=== PATIENT | female | born 1955 | race Caucasian/White ===

== ENCOUNTER 2016-09-23 10:19 | Observation (INO) | payer BC ==
[2016-09-23] MEDS ORDERED: NS 1,000 ML IV ONE (10:38)
[2016-09-23] MEDS ORDERED: ONDANSETRON 4 MG/2 ML VIAL IVP ONE ×2 (10:38→14:00)
--- NOTE | 2016-09-23 10:55 | EDPHY ---
H & P Time Seen by Provider: 09/23/16 10:50 HPI/ROS: CHIEF COMPLAINT: Dizziness, nausea HISTORY OF PRESENT ILLNESS: The patient is a 61-year-old female, with history of vertigo, presenting with dizziness that started at 7:30 a.m. The patient rolled to her left side this morning and felt the room spinning. She became diaphoretic, nauseous, and had multiple episodes of emesis. She has experienced vertigo in the past, but states this is more severe than previous episodes. Patient continues to feel the room spinning with associated nausea. REVIEW OF SYSTEMS: A comprehensive 10 point review of systems is otherwise negative aside from elements mentioned in the history of present illness. Past Medical/Surgical History: Vertigo Social History: Friend at bedside. Smoking Status: Never smoked Physical Exam: General Appearance: Alert, pleasant, pale appearing Eyes: Pupils equal and round, no conjunctival pallor or injection, horizontal nystagmus ENT, Mouth: Mucous membranes moist Neck: Normal inspection Respiratory: Lungs are clear to auscultation Cardiovascular: Regular rate and rhythm Gastrointestinal: Abdomen is soft and non-tender Neurological: A&O, nonfocal, normal leg raises. Skin: Warm and dry, no rash Extremities: Nontender, no pedal edema Psychiatric: Mood and affect normal Constitutional: Initial Vital Signs Temperature (C) 36.4 C 09/23/16 10:23 Heart Rate 54 L 09/23/16 10:23 Respiratory Rate 26 H 09/23/16 10:23 Blood Pressure 154/84 H 09/23/16 10:23 O2 Sat (%) 100 09/23/16 10:23 O2 Delivery Mode Nasal Cannula O2 (L/minute) 2 Allergies/Adverse Reactions: No Known Allergies Allergy (Unverified 09/23/16 10:23) Home Medications: Medication Instructions Recorded Cholecalciferol Vit D3 [Vitamin D3 4,000 units PO DAILY 09/23/16 (*)] Fluticasone Nasal [Flonase Nasal 1 sprays NASAL HS 09/23/16 [place] (RX)] Herbals/Supplements -Info Only 1 ea PO DAILY 09/23/16 Naproxen Sodium [Aleve 220 MG (*)] 220 mg PO DAILY PRN 09/23/16 Vitamin B Complex [B Complex] 1 each PO DAILY 09/23/16 Medical Decision Making - Diagnostics EKG Interpretation: The 12 lead EKG was interpreted by myself. See hard copy and/or "tracemaster" electronic copy for interpretation. Sinus rhythm. Poor R wave progression, diffuse T wave changes. ED Course/Re-evaluation: The patient presents with episode of severe vertigo. Patient has bilateral nystagmus. IV established. Plan to treat symptoms with Zofran, Valium, and Meclizine. 12:20 p.m.: I reevaluated the patient, she is not feeling better after the medications. 1:00 p.m.: After receiving Meclizine, Zofran, and Valium the patient is unable to move her head because of severe vertigo. I ordered. MRI brain. I consulted the hospitalist team, the patient will be admitted to Dr. Dash. Differential Diagnosis: Differential diagnosis includes TIA, stroke, intracranial hemorrhage, tumor, electrolyte abnormality and acute labyrinthitis. - Data Points Laboratory Results: Laboratory Results 09/23/16 10:38 09/23/16 10:38 09/23/16 09/23/16 09/23/16 10:38 10:38 10:38 WBC 8.58 10^3/uL 10^3/uL (3.80-9.50) RBC 3.97 10^6/uL L 10^6/uL (4.18-5.33) Hgb 13.9 g/dL g/dL (12.6-16.3) Hct 39.9 % % (38.0-47.0) MCV 100.5 fL H fL (81.5-99.8) MCH 35.0 pg H pg (27.9-34.1) MCHC 34.8 g/dL g/dL (32.4-36.7) RDW 12.6 % % (11.5-15.2) Plt Count 320 10^3/uL 10^3/uL (150-400) MPV 10.1 fL fL (8.7-11.7) Neut % (Auto) 71.6 % % (39.3-74.2) Lymph % (Auto) 20.6 % % (15.0-45.0) [place] % (Auto) 5.9 % % (4.5-13.0) Eos % (Auto) 0.6 % % (0.6-7.6) Baso % (Auto) 0.6 % % (0.3-1.7) Nucleat RBC Rel Count 0.0 % % (0.0-0.2) Absolute Neuts (auto) 6.14 10^3/uL 10^3/uL (1.70-6.50) Absolute Lymphs (auto) 1.77 10^3/uL 10^3/uL (1.00-3.00) Absolute Monos (auto) 0.51 10^3/uL 10^3/uL (0.30-0.80) Absolute Eos (auto) 0.05 10^3/uL 10^3/uL (0.03-0.40) Absolute Basos (auto) 0.05 10^3/uL 10^3/uL (0.02-0.10) Absolute Nucleated RBC 0.00 10^3/uL 10^3/uL (0-0.01) Immature Gran % 0.7 % % (0.0-1.1) Immature Gran # 0.06 10^3/uL 10^3/uL (0.00-0.10) Sodium 141 mEq/L mEq/L (134-144) Potassium 4.1 mEq/L mEq/L (3.5-5.2) Chloride 106 mEq/L mEq/L (97-110) Carbon Dioxide 22 mEq/l mEq/l (22-31) Anion Gap 13 mEq/L mEq/L (8-16) BUN 14 mg/dL mg/dL (7-23) Creatinine 0.7 mg/dL mg/dL (0.6-1.0) Estimated GFR > 60 Glucose 173 mg/dL H mg/dL (70-100) Calcium 9.7 mg/dL mg/dL (8.5-10.4) Troponin I < 0.012 ng/mL ng/mL (0-0.034) Medications Given: Discontinued Medications Diazepam (Valium Injection) 5 mg IVP EDNOW ONE Stop: 09/23/16 11:00 Last Admin: 09/23/16 11:21 Dose: 5 mg Sodium Chloride (Ns) 1,000 mls @ 0 mls/hr IV EDNOW ONE PRN Reason: Wide Open Stop: 09/23/16 10:39 Last Admin: 09/23/16 10:45 Dose: 1,000 mls Meclizine HCl (Meclizine Hcl) 25 mg PO EDNOW ONE Stop: 09/23/16 11:01 Last Admin: 09/23/16 12:03 Dose: 25 mg Ondansetron HCl (Zofran) 4 mg IVP EDNOW ONE Stop: 09/23/16 10:39 Last Admin: 09/23/16 10:46 Dose: 4 mg Ondansetron HCl (Zofran) 4 mg IVP EDNOW ONE Stop: 09/23/16 14:01 Last Admin: 09/23/16 14:06 Dose: 4 mg Departure - Departure Disposition: [facility] Inpatient Acute Clinical Impression: Vertigo Condition: Fair Report Scribed for: Erna Sanabria Report Scribed by: Laurence Crane Date of Report: 09/23/16 Time of Report: 10:51 Physician Review and Approval Statement: 09/23/16 10:51 Portions of this note were transcribed by a medical care administrator. I personally performed the history, physical exam, and medical decision-making; and confirmed the accuracy of the information in the transcribed note.
[2016-09-23] MEDS ORDERED: DIAZEPAM 10 MG/2 ML SYR IVP ONE (10:59)
[2016-09-23] MEDS ORDERED: MECLIZINE HCL 25 MG TAB PO ONE (11:00)
[2016-09-23 11:20] LABS: % IMMATURE GRANULYOCYTES 0.7 % (0.0-1.1); ABSOLUTE IMMATURE GRANULOCYTES 0.06 10^3/uL (0.00-0.10); ADD DIFF? NO; ADD MORPH? NO; ADD SCAN? NO; ATYPICAL LYMPHOCYTE FLAG 20 (0-99); FRAGMENT RBC FLAG 0 (0-99); HEMATOCRIT 39.9 % (38.0-47.0); HEMOGLOBIN 13.9 g/dL (12.6-16.3); LEFT SHIFT FLG 10 (0-99); LIPEMIA HEMOLYSIS FLAG 90 (0-99); MEAN CELL HEMOGLOBIN CONCENTR. 34.8 g/dL (32.4-36.7); MEAN CELL VOLUME 100.5 fL (81.5-99.8); MEAN PLATELET VOLUME 10.1 fL (8.7-11.7); PLATELET CLUMPS FLAG 0 (0-99); PLATELET COUNT 320 10^3/uL (150-400); RED BLOOD CELL COUNT 3.97 10^6/uL (4.18-5.33); RED CELL DISTRIBUTION WIDTH 12.6 % (11.5-15.2)
[2016-09-23 11:27] LABS: ANION GAP 13 mEq/L (8-16); CALCIUM 9.7 mg/dL (8.5-10.4); CARBON DIOXIDE 22 mEq/l (22-31); CHLORIDE 106 mEq/L (97-110); CREATININE 0.7 mg/dL (0.6-1.0); GLOMERULAR FILTRATION RATE > 60; GLUCOSE 173 mg/dL (70-100); POTASSIUM 4.1 mEq/L (3.5-5.2); SODIUM 141 mEq/L (134-144)
--- NOTE | 2016-09-23 11:29 | CPEKG ---
Heart Rate: 52 RR Interval: 1154 P-R Interval: 148 QRSD Interval: 100 QT Interval: 532 QTC Interval: 495 P [place]: 44 QRS [place]: -49 T Wave [place]: -80 EKG Severity - ABNORMAL ECG - EKG Impression: SINUS RHYTHM EKG Impression: LEFT ANTERIOR FASCICULAR BLOCK EKG Impression: BORDERLINE R WAVE PROGRESSION, ANTERIOR LEADS EKG Impression: ABNORMAL T, CONSIDER ISCHEMIA, DIFFUSE LEADS EKG Impression: BORDERLINE PROLONGED QT INTERVAL Electronically Signed By: Erna Sanabria 23-Sep-2016 14:58:50
[2016-09-23] MEDS ORDERED: ACETAMINOPHEN 325 MG TAB PO PRN (15:35)
[2016-09-23] MEDS ORDERED: LORazepam 0.5 MG TAB PO PRN (15:35)
[2016-09-23] MEDS ORDERED: ONDANSETRON DISINTEGRATING 4 MG TAB PO PRN (15:35)
[2016-09-23] MEDS ORDERED: ONDANSETRON 4 MG/2 ML VIAL IVP PRN (15:35)
[2016-09-23] MEDS ORDERED: PROMETHAZINE HCL 25 MG TAB PO PRN (15:35)
[2016-09-23] MEDS ORDERED: NAPROXEN SODIUM 220 MG TAB PO PRN (15:41)
[2016-09-23] MEDS ORDERED: LORazepam 2 MG/ML INJ IVP PRN (15:48)
--- NOTE | 2016-09-23 15:49 | PDGENHP ---
History and Physical - Chief Complaint vertigo - History of Present Illness 61 yo female with h/o vertigo episodes presents to the ED with vertigo, nausea and vomiting. She awoke this am and upon rolling over onto her left side, she developed sudden, severe vertigo. She then had some nausea and vomiting. Her friend staying with her is an party coordinator and tried to perform jonathan's maneuvers though there was no improvement in her symptoms. She denies headaches , vision changes, fevers or chills. No Cp or SOB. No h/o hypertension or prior stroke. She does report viral URI symptoms over the past week. In the Ed, she received IV Valium, Meclizine and IV Zofran. Her symptoms persisted so a MRI was ordered and she is admitted to the hospital for further management. History Information - Allergies/Home Medication List Allergies/Adverse Reactions: No Known Allergies Allergy (Unverified 09/23/16 10:23) Home Medications: Cholecalciferol Vit D3 [Vitamin D3 (*)] 4,000 units PO DAILY 09/23/16 [Last Taken 09/23/16] Fluticasone Nasal [Flonase Nasal [place] (RX)] 1 sprays NASAL HS 09/23/16 [Last Taken 09/22/16] Herbals/Supplements -Info Only 1 ea PO DAILY 09/23/16 [Last Taken Unknown] Naproxen Sodium [Aleve 220 MG (*)] 220 mg PO DAILY PRN 09/23/16 [Last Taken Unknown] Vitamin B Complex [B Complex] 1 each PO DAILY 09/23/16 [Last Taken Unknown] I have personally reviewed and updated: family history, medical history, social history, surgical history - Past Medical History Additional medical history: vertigo - Surgical History Reports: no pertinent surgical hx - Family History Positive for: non-pertinent - Social History Smoking Status: Never smoked Alcohol Use: None Drug Use: None Additional social history: Lives independently. Review of Systems ROS: 10pt was reviewed & negative except for what was stated in HPI & below Physical Exam Temp Pulse Resp BP Pulse Ox 36.4 C 57 L 18 137/79 H 96 09/23/16 10:23 09/23/16 14:00 09/23/16 14:00 09/23/16 14:00 09/23/16 14:00 O2 (L/minute) 2 Constitutional: no apparent distress Eyes: PERRL, other (+nystagmus with gaze to the left and leftward nystagmus with superior gaze) Ears, Nose, Mouth, Throat: dry mucous membranes Cardiovascular: regular rate and rhythym, no murmur, rub, or gallop Respiratory: no respiratory distress, clear to auscultation Gastrointestinal: normoactive bowel sounds, soft, non-tender abdomen Skin: warm Musculoskeletal: full muscle strength Neurologic: AAOx3 Psychiatric: interacting appropriately Lab Data & Imaging Review 09/23/16 10:38 09/23/16 10:38 WBC 8.58 10^3/uL (3.80-9.50) 09/23/16 10:38 RBC 3.97 10^6/uL (4.18-5.33) L 09/23/16 10:38 Hgb 13.9 g/dL (12.6-16.3) 09/23/16 10:38 Hct 39.9 % (38.0-47.0) 09/23/16 10:38 MCV 100.5 fL (81.5-99.8) H 09/23/16 10:38 MCH 35.0 pg (27.9-34.1) H 09/23/16 10:38 MCHC 34.8 g/dL (32.4-36.7) 09/23/16 10:38 RDW 12.6 % (11.5-15.2) 09/23/16 10:38 Plt Count 320 10^3/uL (150-400) 09/23/16 10:38 MPV 10.1 fL (8.7-11.7) 09/23/16 10:38 Neut % (Auto) 71.6 % (39.3-74.2) 09/23/16 10:38 Lymph % (Auto) 20.6 % (15.0-45.0) 09/23/16 10:38 [place] % (Auto) 5.9 % (4.5-13.0) 09/23/16 10:38 Eos % (Auto) 0.6 % (0.6-7.6) 09/23/16 10:38 Baso % (Auto) 0.6 % (0.3-1.7) 09/23/16 10:38 Nucleat RBC Rel Count 0.0 % (0.0-0.2) 09/23/16 10:38 Absolute Neuts (auto) 6.14 10^3/uL (1.70-6.50) 09/23/16 10:38 Absolute Lymphs (auto) 1.77 10^3/uL (1.00-3.00) 09/23/16 10:38 Absolute Monos (auto) 0.51 10^3/uL (0.30-0.80) 09/23/16 10:38 Absolute Eos (auto) 0.05 10^3/uL (0.03-0.40) 09/23/16 10:38 Absolute Basos (auto) 0.05 10^3/uL (0.02-0.10) 09/23/16 10:38 Absolute Nucleated RBC 0.00 10^3/uL (0-0.01) 09/23/16 10:38 Immature Gran % 0.7 % (0.0-1.1) 09/23/16 10:38 Immature Gran # 0.06 10^3/uL (0.00-0.10) 09/23/16 10:38 Sodium 141 mEq/L (134-144) 09/23/16 10:38 Potassium 4.1 mEq/L (3.5-5.2) 09/23/16 10:38 Chloride 106 mEq/L (97-110) 09/23/16 10:38 Carbon Dioxide 22 mEq/l (22-31) 09/23/16 10:38 Anion Gap 13 mEq/L (8-16) 09/23/16 10:38 BUN 14 mg/dL (7-23) 09/23/16 10:38 Creatinine 0.7 mg/dL (0.6-1.0) 09/23/16 10:38 Estimated GFR > 60 09/23/16 10:38 Glucose 173 mg/dL (70-100) H 09/23/16 10:38 Calcium 9.7 mg/dL (8.5-10.4) 09/23/16 10:38 Troponin I < 0.012 ng/mL (0-0.034) 09/23/16 10:38 Assessment & Plan Assessment: Vertigo (Acute) - suspect viral labyrinthitis given her concomitant viral syndrome vs BPPV. MRI brain neg for cerebellar stroke, but showed an equivocal hemosiderin deposition in the right mid-brain and MRI with contrast is recommended. -admit for supportive care, anti-emetics, meclizine, ativan, etc -PT eval for possible trial of jonathan's maneuver -MRI with contrast for further evaluation of right mid-brain lesion Dispo - obs
[2016-09-23] MEDS: NS 1,000 ML IV SCH (16:39)
[2016-09-23] MEDS: MECLIZINE HCL 25 MG TAB PO PRN (17:34)
[2016-09-23] MEDS ORDERED: GADOBUTROL 10 ML VIAL IVP ONE (18:03)
[2016-09-23 19:54] VITALS: RESP 16
[2016-09-23] MEDS ORDERED: FLUTICASONE NASAL 120 SPRAYS/16 GM MDI EACHNARE SCH (21:00)
[2016-09-24] MEDS: NS 1,000 ML IV SCH (04:34)
[2016-09-24] MEDS: MECLIZINE HCL 25 MG TAB PO PRN ×2 (04:34→11:42)
[2016-09-24 07:50] VITALS: TEMP 98
[2016-09-24 12:16] VITALS: BP 132/80; PULSE 66; O2SAT 93
--- NOTE | 2016-09-24 16:34 | GDS ---
[f rep st] DISCHARGE SUMMARY DISCHARGE DIAGNOSES: 1. Vertigo suspected secondary to a viral labyrinthitis. 2. Grief reaction secondary to the anniversary of the of her . 3. Nausea and vomiting resolved. IMAGING STUDIES/PROCEDURES: Noncontrast brain MRI September 23, 2016, was negative for cerebellar stroke and there were no acute intracranial findings. There was some equivocal hemosiderin deposition in paul he right mid brain but it was unclear if this was possibly an occult vascular malformation or artifa ct. MRI with contrast was then performed which was completely normal. HISTORY: For details, please see the history and physical dated September 23, 2016. In brief, the patien paul is a 61-year-old female with a history of anxiety and depression who presents to the emergency dep artment with acute vertigo. She was admitted to the hospital for further evaluation and symptom man agement. HOSPITAL COURSE: The patient admitted to the med/surg unit. Her symptoms were well controlled with meclizine, Zofran and p.r.n. Ativan. Her symptoms were positional in etiology and exam findings we re consistent with a peripheral vertigo process. I suspect a viral labyrinthitis given that she had an upper respiratory infection preceding this event. There was no evidence of cerebellar stroke on her MRI. Her condition was markedly improved the following morning. She had a Physical Therapy ev aluation who felt she was safe for discharge home. DISPOSITION: Patient is discharged home in stable condition. DISCHARGE FOLLOWUP: 1. Dr. Gisel Conteh, primary care. 2. Patient is referred to physical therapy for vestibular therapy services. DISCHARGE MEDICATIONS: Please see [facility] for complete updated outpatient medication list. New ok dications on discharge include meclizine 25 mg p.o. q.6 hours p.r.n., #30 no refills) and Zofran 4 m g p.o. q.4 hours p.r.n., #30 no refills. She will continue all other outpatient medications as pres cribed. /[id number]/MODL
== END 2016-09-24 13:23 | disposition home or self-care (01) ==
LOC: F3N 16:21
PROVIDERS: ADMIT Family Medicine; ATTEND Hospitalist
DX: R42 Dizziness and giddiness (principal); F43.20 Adjustment disorder, unspecified; R11.2 Nausea with vomiting, unspecified
CPT/HCPCS: 70551; 70552; 93005; 97162; G0378; A9585; J2405

== ENCOUNTER → 2016-11-12 | Outpatient (CLI) | payer BC | LOC: FIMAGING 09:10 | PROVIDERS: ATTEND Family Medicine | DX: Z12.31 Encounter for screening mammogram for malignant neoplasm of breast (principal) | CPT/HCPCS: G0202 ==

== ENCOUNTER → 2017-01-31 | Outpatient (CLI) | payer BC | LOC: BMCIMAGING 15:33 | PROVIDERS: ATTEND Family Medicine | DX: R05 Cough (principal) ==

== ENCOUNTER 2017-04-01 11:31 | Emergency (ER) | payer BC ==
[2017-04-01 11:38] VITALS: TEMP 97.7; O2SAT 97
--- NOTE | 2017-04-01 11:54 | CPEKG ---
Heart Rate: 66 RR Interval: 909 P-R Interval: 128 QRSD Interval: 78 QT Interval: 396 QTC Interval: 415 P [place]: 5 QRS [place]: -59 T Wave [place]: -42 EKG Severity - ABNORMAL ECG - EKG Impression: SINUS RHYTHM EKG Impression: LEFT ANTERIOR FASCICULAR BLOCK EKG Impression: NONSPECIFIC T ABNORMALITIES, DIFFUSE LEADS Electronically Signed By: Charlotte Granado 01-Apr-2017 17:56:54
--- NOTE | 2017-04-01 12:06 | EDPHY ---
HPI/HX/ROS/PE/MDM - Data Points Imaging: I viewed and interpreted images myself Narrative: CHIEF COMPLAINT: Chest pain HISTORY OF PRESENT ILLNESS: The patient is a 62 y/o female arriving from her PCP's office complaining of constant chest pain. She noticed indigestion which she describes as burning abdominal fullness on Saturday, 3 days ago, which is unusual for her. She took [place] for it and an hour later had extreme nausea, diaphoresis, and was salivating. Those symptoms resolved after 15 minutes and she did not vomit. She carried on with her day as normal. Through the day she noticed a "dull ache" around her sternum. Sometimes the pain was present in her upper back around her scapula. Her pain has remained constant, but she describes it as "subtle." Pain is very slightly worse with deep breathing, but other carmichael nothing alleviates or aggravates symptoms. She's noticed some mild shortness of breath as well. Echocardiogram and stress test in 2010 were normal; completed these after developing extreme life stress. She denies personal or family history of gallbladder disease history, blood clot history, cardiac disease history. No fever, chills, palpitations, vomiting, diarrhea, urinary complaints, headache , lightheadedness, syncope, leg swelling. REVIEW OF SYSTEMS: Aside from elements discussed in the HPI, a comprehensive 10-point review of systems was reviewed and is negative. PAST MEDICAL HISTORY: Possible hypertension resolved after cutting out caffeine, elevated HDL FAMILY MEDICAL HISTORY: Mother had stroke in 70s. No cardiac disease in close relatives. SOCIAL HISTORY: Nonsmoker. Occasional marijuana. PCP: Dr. Lalita Nunez VITAL SIGNS: Reviewed by me GENERAL: Well-developed, well-nourished, resting comfortably in no respiratory distress. HEENT: Atraumatic. Eyes: No icterus, no injection. Mouth: moist mucous membranes. No erythema or lesions. Neck: supple with no adenopathy. LUNGS: Clear to auscultation bilaterally, no wheezes, rhonchi or rales. CARDIAC: Regular rate and rhythm, no rubs, murmurs or gallops. No chest wall tenderness. ABDOMEN: Soft, nontender, nondistended, bowel sounds normal. BACK: No CVA tenderness. EXTREMITIES: No trauma. Left leg slightly larger than right, which she reports is baseline. No edema. Range of motion is normal throughout. NEURO: Alert and oriented, grossly nonfocal. SKIN: Warm and dry, no rash. PSYCHIATRIC: Normal mentation, no agitation. Portions of this note were transcribed by a medical record transcriber. I personally performed a history, physical exam, medical decision making, and confirmed accuracy of information the transcribed note. (Charlotte Granado) ED Course: This is a 62 y/o female who presents for evaluation of a 3-day history of dull aching chest pain preceded by nausea and diaphoresis. Her exam is unremarkable. Plan for IV, labs, EKG, chest x-ray, RUQ US. 324mg PO aspirin administered. The 12 lead EKG was interpreted by myself. Sinus mechanism. Nonspecific T-wave inversions inferolaterally. No ST segment elevation. Similar to EKG from . See hard copy and/or "tracemaster" electronic copy for interpretation. Labs are unremarkable. Nothing acute on chest x-ray. RUQ US is negative. Call was placed to [facility]. As the patient is not an established patient with their practice, on-call cardiology was asked to be called. Case was discussed with Dr. Henrry Velazquez who evaluated the patient Emergency Department. A nuclear stress test was ordered. Patient's care was assumed by Dr. Fitzgerald at 4:15 p.m.. We are awaiting the results of the stress test. (Charlotte Granado) MDM: Patient signed out to me by Dr. Granado at approximately 3:30 p.m. pending nuclear stress test. Plan for discharge home if stress test is negative. I spoke to Stacy from [facility] as well as Dr. Prince yancey from Radiology, and they confirmed that stress test results are negative. Per previous plan, the patient be discharged home. On re-evaluation at 5:00 p.m., the patient is comfortable and wants to go home. (Ray Fitzgerald) - Data Points Imaging Results: Imaging Impressions Chest X-Ray 04/01/17 11:52 Impression: No evidence of acute cardiopulmonary abnormality. Abdomen Ultrasound 04/01/17 13:17 Impression: 1. Mild hepatic steatosis. 2. Normal appearance of the gallbladder. Findings were discussed with Charlotte Granado MD at 14:51, on 04/01/2017. Myocardial Perfusion Scan Nuc Med 04/01/17 15:31 Impression: 1. Normal left ventricular ejection fraction of 85%. 2. No focal wall motion abnormalities. 3. No evidence for myocardial ischemia or infarct. Findings and recommendations given to emergency department physician Dr. De Leon and at 1655 hour, 04/01/2017. Final report concurs with initial preliminary interpretation. Laboratory Results: Laboratory Results 04/01/17 11:52 04/01/17 11:30 04/01/17 04/01/17 11:52 11:30 WBC 5.55 10^3/uL 10^3/uL (3.80-9.50) RBC 3.98 10^6/uL L 10^6/uL (4.18-5.33) Hgb 14.2 g/dL g/dL (12.6-16.3) Hct 39.8 % % (38.0-47.0) MCV 100.0 fL H fL (81.5-99.8) MCH 35.7 pg H pg (27.9-34.1) MCHC 35.7 g/dL g/dL (32.4-36.7) RDW 12.9 % % (11.5-15.2) Plt Count 313 10^3/uL 10^3/uL (150-400) MPV 9.8 fL fL (8.7-11.7) Neut % (Auto) 50.3 % % (39.3-74.2) Lymph % (Auto) 38.2 % % (15.0-45.0) [place] % (Auto) 9.4 % % (4.5-13.0) Eos % (Auto) 1.4 % % (0.6-7.6) Baso % (Auto) 0.5 % % (0.3-1.7) Nucleat RBC Rel Count 0.0 % % (0.0-0.2) Absolute Neuts (auto) 2.79 10^3/uL 10^3/uL (1.70-6.50) Absolute Lymphs (auto) 2.12 10^3/uL 10^3/uL (1.00-3.00) Absolute Monos (auto) 0.52 10^3/uL 10^3/uL (0.30-0.80) Absolute Eos (auto) 0.08 10^3/uL 10^3/uL (0.03-0.40) Absolute Basos (auto) 0.03 10^3/uL 10^3/uL (0.02-0.10) Absolute Nucleated RBC 0.00 10^3/uL 10^3/uL (0-0.01) Immature Gran % 0.2 % % (0.0-1.1) Immature Gran # 0.01 10^3/uL 10^3/uL (0.00-0.10) Sodium 146 mEq/L H mEq/L (134-144) Potassium 4.1 mEq/L mEq/L (3.5-5.2) Chloride 108 mEq/L mEq/L (97-110) Carbon Dioxide 23 mEq/l mEq/l (22-31) Anion Gap 15 mEq/L mEq/L (8-16) BUN 15 mg/dL mg/dL (7-23) Creatinine 0.7 mg/dL mg/dL (0.6-1.0) Estimated GFR > 60 Glucose 95 mg/dL mg/dL (70-100) Calcium 9.7 mg/dL mg/dL (8.5-10.4) Total Bilirubin 0.4 mg/dL mg/dL (0.1-1.4) Conjugated Bilirubin 0.2 mg/dL mg/dL (0.0-0.5) Unconjugated Bilirubin 0.2 mg/dL mg/dL (0.0-1.1) AST 28 IU/L IU/L (14-46) ALT 32 IU/L IU/L (9-52) Alkaline Phosphatase 92 IU/L IU/L (38-126) Troponin I < 0.012 ng/mL ng/mL (0.000-0.034) Total Protein 7.7 g/dL g/dL (6.3-8.2) Albumin 4.5 g/dL g/dL (3.5-5.0) Lipase 144 IU/L IU/L (23-300) Medications Given: Discontinued Medications Aspirin (Aspirin) 324 mg PO EDNOW ONE Stop: 04/01/17 12:09 Last Admin: 04/01/17 12:27 Dose: 324 mg General Time Seen by Provider: 04/01/17 11:49 Initial Vital Signs: Initial Vital Signs Temperature (C) 36.5 C 04/01/17 11:35 Heart Rate 76 04/01/17 11:35 Respiratory Rate 18 04/01/17 11:35 Blood Pressure 147/88 H 04/01/17 11:35 O2 Sat (%) 97 04/01/17 11:35 O2 Delivery Mode Room Air Allergies/Adverse Reactions: No Known Allergies Allergy (Verified 04/01/17 11:35) Home Medications: Medication Instructions Recorded Fluticasone Nasal [Flonase Nasal 1 sprays NASAL HS 09/23/16 [place]] Naproxen Sodium [Aleve 220 MG (*)] 220 mg PO DAILY PRN 09/23/16 Departure - Departure Disposition: Home, Routine, Self-Care Clinical Impression: Chest pain Qualifiers: Chest pain type: unspecified Qualified Code(s): R07.9 - Chest pain, unspecified Condition: Good Instructions: Chest Pain (ED) Additional Instructions: Follow-up with your primary doctor within 72 hours. Return to the Emergency Department for fever, chest pain, shortness of breath, increasing pain or other worsening of condition. Follow up with a process manager as well for further testing. Referrals: Leno Velazquez MD [Medical Doctor] - As per Instructions Gisel Conteh MD [Primary Care Provider] - As per Instructions Report Scribed for: Charlotte Granado Report Scribed by: Ambika Hall Date of Report: 04/01/17 Time of Report: 12:11
[2017-04-01 12:08] LABS: % IMMATURE GRANULYOCYTES 0.2 % (0.0-1.1); ABSOLUTE IMMATURE GRANULOCYTES 0.01 10^3/uL (0.00-0.10); ADD DIFF? NO; ADD MORPH? NO; ADD SCAN? NO; ATYPICAL LYMPHOCYTE FLAG 10 (0-99); FRAGMENT RBC FLAG 0 (0-99); HEMATOCRIT 39.8 % (38.0-47.0); HEMOGLOBIN 14.2 g/dL (12.6-16.3); LEFT SHIFT FLG 0 (0-99); LIPEMIA HEMOLYSIS FLAG 90 (0-99); MEAN CELL HEMOGLOBIN 35.7 pg (27.9-34.1); MEAN CELL HEMOGLOBIN CONCENTR. 35.7 g/dL (32.4-36.7); MEAN PLATELET VOLUME 9.8 fL (8.7-11.7); PLATELET CLUMPS FLAG 10 (0-99); PLATELET COUNT 313 10^3/uL (150-400); RED BLOOD CELL COUNT 3.98 10^6/uL (4.18-5.33); RED CELL DISTRIBUTION WIDTH 12.9 % (11.5-15.2)
[2017-04-01] MEDS ORDERED: ASPIRIN 81 MG CHEWABLE TAB PO ONE (12:08)
[2017-04-01 12:30] LABS: ALANINE AMINOTRANSFERASE 32 IU/L (9-52); ALBUMIN 4.5 g/dL (3.5-5.0); ALKALINE PHOSPHATASE 92 IU/L (38-126); ANION GAP 15 mEq/L (8-16); ASPARTATE AMINOTRANSFERASE 28 IU/L (14-46); BILIRUBIN,TOTAL 0.4 mg/dL (0.1-1.4); BILIRUBIN-CONJUGATED 0.2 mg/dL (0.0-0.5); BILIRUBIN-UNCONJUGATED 0.2 mg/dL (0.0-1.1); CALCIUM 9.7 mg/dL (8.5-10.4); CARBON DIOXIDE 23 mEq/l (22-31); CHLORIDE 108 mEq/L (97-110); CREATININE 0.7 mg/dL (0.6-1.0); GLOMERULAR FILTRATION RATE > 60; GLUCOSE 95 mg/dL (70-100); POTASSIUM 4.1 mEq/L (3.5-5.2); SODIUM 146 mEq/L (134-144); TOTAL PROTEIN 7.7 g/dL (6.3-8.2)
[2017-04-01 12:33] LABS: TROPONIN I < 0.012 ng/mL (0.000-0.034)
[2017-04-01 14:53] VITALS: RESP 16
--- NOTE | 2017-04-01 16:43 | GCON ---
[f rep st] CONSULTATION DATE OF CONSULTATION: 04/01/2017 HISTORY OF PRESENT ILLNESS: The patient is a woman who is in the hospital with chest pain. The patient is a healthy woman, gets around, does very well, gets up to 10,000 feet, can tromp throug h the snow and not have any significant problems. Nonetheless, morning she woke up within i ndigestion. Her indigestion is a burning in the center of the chest, some chest discomfort, she can feel a little bit of a fullness and some pain. She took some antacids and it went away. Saturday, she had the same kind of thing. This is not normal for her. She does, however, have a history of pepti c ulcer disease and was somewhat like this in the past. She is not under any significant stress or c hanging her diet or activity significantly. She was not exposed any dangerous foods in the days before these symptoms occurred. Also on Saturday and Saturday sort of had similar discomforts. She thought at one point she might throw up, but she ne debbie did. At one point on Saturday, she felt a little bit of a shivering. She saw her doctor today who sent her down to the emergency room. She has not had diarrhea. She has not really vomited. She has not had much nausea overall. Cardiac risk factors are negative for hypertension, diabetes, hyperlipidemia, smoking, hyperuricemia, family history of premature coronary disease, known coronary artery disease. She has never had gout. She is not obese. On the weekend, she did go to 10,000 feet and tromped around in the snow to find a [place] selina t she liked, was able to do that and had no cardiovascular symptoms. MEDICATIONS: None, just p.r.n. medications. PAST SURGICAL HISTORY: Listed in the chart. PAST MEDICAL HISTORY AND REVIEW OF SYSTEMS: A 12-point Review of Systems is negative except as noted above. Sometimes she feels like she has a little hypertension, when she stops caffeine, but otherwi se does not have high blood pressure. She also has had a markedly positive HDL and no dyslipidemia. FAMILY HISTORY: There is no family history of premature coronary disease. No history of unexplained sudden at a young age. SOCIAL HISTORY: She was born at [place], [place]. She retired since age 57. 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. She lives here now. Does not smoke, does not drink significant a stefanie of alcohol. She is very active and is not limited in her activities. PHYSICAL EXAMINATION: VITAL SIGNS: Her blood pressure is 124/72, heart rate 62, respiratory rate 14 . HEENT: Pupils equal and reactive. Mucous membranes and mouth moist. NECK: Supple. CARDIOVASCULAR: S1 and S2. Soft systolic murmur left sternal border. No diastolic murmur. No S3, S4. No rubs. PULMONARY: Rhonchi, no rales, wheezing or dullness. ABDOMEN: Soft, nontender, without masses. CVA: No tenderness. EXTREMITIES: No edema, inflammation or ulceration. NEURO: Cranial nerves 2 through 12 grossly normal. Motor and sensory intact. LAB: White count 5.5, hematocrit is 39.8, platelets are 313. Sodium 146, potassium 4.1, chloride 10 8, CO2 of 23, BUN 15, creatinine 0.7, glucose 95, bilirubin 0.4, SGOT, SGPT, alkaline phosphatase all normal. Troponins negative. Lipase is negative. EKG is abnormal with diffuse T-wave changes, which is the same as it was some years ago. ASSESSMENT AND PLAN: 1. Nausea. 2. Chest discomfort. This patient could easily have coronary artery disease. She does not have significant risk factors a nd she does not have exertional chest pain. However, it does not mean that she could not have de jesus ry disease and she has an abnormal EKG and a story that could be consistent with coronary disease. A t this point in time before she leaves the hospital I have encouraged her to get a nuclear stress stan t. I want to do an imaging study because of her abnormal baseline EKG. She has agreed to do this. However, if they cannot accomplish the study today, she needs to get back to her family and her life and does not want to spend the night in the hospital. I have talked to her about this and she is not interested in staying in the hospital. She understand s there is a risk of sudden or myocardial infarction. However, hopefully we will get her nuclear stress test done. She can have a nuclear stress test that can be normal and she could still have sudden cardiac . She understands the situation regardin g all of this and does not want to stay in the hospital. In terms of the differential diagnosis of her issues, there is nothing to suggest pancreatitis, nothi ng to suggest significant gallbladder disease and abdominal ultrasound is pending. There is nothing to suggest sepsis, tumor, or other systemic illnesses right at this time. Her chest pain syndrome is atypical. I do not think it is coronary artery disease, but we want to be very careful and not miss something in this young woman. There is nothing to suggest her discomfort and nausea is secondary to pulmonary embolic disease, dise ase of the great vessels, her pulses are full and equal, nothing to suggest that she has a major pneu jorge infectious process going on. Clearly, she could have a GI issue going on and she is going to be worked up by her own physician as an outpatient for further evaluation. If I were running things, I would do a barium swallow, upper GI on her relatively soon, check the abd ominal ultrasound, which is pending and go further from there. I have answered all her questions, talked to the ER doctor, and we will follow her. Thank you very much for asking us to see this patient. /[id number]/MODL
[2017-04-01 17:19] VITALS: BP 125/69; PULSE 66
--- NOTE | 2017-04-02 03:30 | CPR ---
[f rep st] NONINVASIVE CARDIAC PROCEDURE REPORT DATE OF PROCEDURE: 04/01/2017 REASON FOR TEST: 1. Chest discomfort. 2. Abnormal EKG with T-wave inversions in the anterior through lateral leads. Resting EKG shows a regular sinus rhythm with late R-wave progression in the anterior septal leads and T-wave inversion in the anterior through lateral leads. Resting blood pressure 138/100, oxygen saturation 98%, resting heart rate 87. STRESS PORTION: She was exercised according to the Angel protocol for a total of 5 minutes and 35 seconds. Met level reached 6.6, peak blood pressure 200/90 , heart rate peak 134. She had no chest discomfort during exercise. She was short of breath and exercise was stopped due to shortness of breath. RECOVERY: She did spontaneously recover. Resting heart rate 85, resting blood pressure 162/90. She is hypertensive. At this time, she is stable to go to [facility]. /[id number]/MODL MTDD
== END 2017-04-01 17:16 | disposition home or self-care (01) ==
DX: R07.9 Chest pain, unspecified (principal)
CPT/HCPCS: 71020; 76705; 78451; 93005; 93017; 99285; A9500

== ENCOUNTER → 2017-07-30 | Outpatient (CLI) | payer BC | LOC: BMCIMAGING 09:38 | PROVIDERS: ATTEND Physician Assistant | DX: S52.592A Other fractures of lower end of left radius, initial encounter for closed fracture (principal) ==

== ENCOUNTER → 2017-08-06 | Outpatient (CLI) | payer BC | LOC: BMCIMAGING 14:44 | PROVIDERS: ATTEND Orthopaedic Surgery Hand Surgery | DX: S52.322D Displaced transverse fracture of shaft of left radius, subsequent encounter for closed fracture with routine healing (principal) ==

== ENCOUNTER → 2017-08-14 | Outpatient (CLI) | payer BC | LOC: BMCIMAGING 09:00 | PROVIDERS: ATTEND Orthopaedic Surgery Hand Surgery | DX: S52.532D Colles' fracture of left radius, subsequent encounter for closed fracture with routine healing (principal) ==

== ENCOUNTER → 2017-08-22 | Outpatient (CLI) | payer BC | LOC: BMCIMAGING 14:50 | PROVIDERS: ATTEND Orthopaedic Surgery Hand Surgery | DX: S52.502D Unspecified fracture of the lower end of left radius, subsequent encounter for closed fracture with routine healing (principal) ==

== ENCOUNTER → 2017-09-05 | Outpatient (CLI) | payer BC | LOC: BMCIMAGING 10:23 | PROVIDERS: ATTEND Orthopaedic Surgery Hand Surgery | DX: S52.502D Unspecified fracture of the lower end of left radius, subsequent encounter for closed fracture with routine healing (principal) ==

== ENCOUNTER → 2017-11-22 | Outpatient (CLI) | payer BC | LOC: FIMAGING 12:06 | PROVIDERS: ATTEND Family Medicine | DX: N60.02 Solitary cyst of left breast (principal) ==